=== PATIENT | male | born 1940 | race Caucasian/White ===

== ENCOUNTER 2018-10-28 23:28 | Inpatient (IN) | payer MEDICARE, OTHER ==
[~2018-10-28] VITALS: Ht 172.7 cm; Wt 83.0 kg
[2018-10-28] MEDS ORDERED: INSULIN ASPART (23:45)
[2018-10-28] MEDS ORDERED: JANUVIA50 MG PO (23:45)
[2018-10-28] MEDS ORDERED: GLUCOPHAGE500 MG PO (23:45)
[2018-10-28 23:54] LABS: BASOPHILS 0.3 % (0-2); EOSINOPHILS 1.8 % (0-7); HEMATOCRIT 42.6 % (42.0-54.0); HEMOGLOBIN 15.1 g/dL (13.5-17.5); IMMATURE GRANULOCYTES 0.4 % (0-5); LYMPHOCYTES 27.8 % (15-50); MCH 30.1 pg (26.0-34.0); MCHC 35.4 g/dL (31.0-37.0); MEAN PLATELET VOLUME 10.2 fL (7.4-10.4); MONOCYTES 12.8 % (2-11); NEUTROPHILS 56.9 % (40-80); PLATELET COUNT 185 10x3/uL (130-400); RBC 5.01 10x6/uL (4.20-6.10); RDW 12.7 % (11.5-14.5); WBC 7.9 10x3/uL (4.8-10.8)
[2018-10-29] VITALS (7 sets, daily range): BP systolic 125–160; BP diastolic 66–84; BMI 27.1
[2018-10-29 00:07] LABS: APTT 28.6 SECONDS (22.8-39.4); INR 0.94 (0.85-1.17); PROTIME 12.1 SECONDS (11.6-15.0)
--- NOTE | 2018-10-29 00:10 | NUR ---
stroke [facility] # [id number]
--- NOTE | 2018-10-29 00:16 | NUR ---
SEEN BY [id number], TO CT 0474
--- NOTE | 2018-10-29 00:22 | NUR ---
AR SAVES CALLED AT 0010, AR VIDEO CONF 0016.
[2018-10-29 00:23] LABS: ALBUMIN 3.4 g/dL (3.4-5.0); ALKALINE PHOSPHATASE 75 U/L (46-116); BILIRUBIN - TOTAL 0.47 mg/dL (0.2-1.3); CALC OSMOLALITY 282 mosm/kg (275-300); CALCIUM 8.8 mg/dL (8.5-10.1); CARBON DIOXIDE 27.4 mmol/L (21.0-32.0); CHLORIDE - SERUM 104 mmol/L (98-107); CREATININE - SERUM 1.2 mg/dL (0.6-1.3); GLUCOSE 114 mg/dL (74-106); MAGNESIUM - SERUM 1.6 mg/dL (1.8-2.4); POTASSIUM - SERUM 3.5 mmol/L (3.5-5.1); PROTEIN - SERUM 7.9 g/dL (6.4-8.2); SODIUM 141 mmol/L (136-145); THYROID STIMULATING HORMONE 9.33 uIU/mL (0.36-3.74); TROPONIN-I < 0.017 ng/mL (0.000-0.060); UREA NITROGEN 14 mg/dL (7-18); eGFR NON AFRICAN AMERICAN 63 mL/min (90-120)
[2018-10-29 00:25] LABS: ALT (SGPT) 25 U/L (10-68)
--- NOTE | 2018-10-29 00:29 | NUR ---
VIDEO COF FINISHED.
--- NOTE | 2018-10-29 00:38 | NUR ---
STROKE SCALE IS 1. TPA NOT INDICATED PER NEUROLOGIST TARA. FAMILY IN ROOM AND VERBALIZES UNDERSTANDING. FAMILY STATES IS COMFORTABLE WITH PT BEING ADMITTED HERE.
--- NOTE | 2018-10-29 01:30 | NUR ---
RECIEVED TO FLOOR VIA BED, ACCOMPANIED BY ER STAFF. AMBULATED TO BED, STAND BY ASSIST. PT IS A&O X 4, DENIES PAIN/NUMBNESS/TINGLING. REPORTS HE IS CURRENTLY EXPERIENCING DIFFICULTY WITH DOUBLE VISION. VITAL SIGNS STABLE, TELEMETRY APPLIED - 56 SINUS ERIK. PT DENIES CURRENT NEEDS. WILL CONTINUE TO MONITOR.
--- NOTE | 2018-10-29 07:41 | NUR ---
PT AWAKE, ALERT AND ORIENTED. RR EVEN AND UNLBAORED. DENIES PAIN OR NEEDS AT THIS TIME. ASSISTED PT TO BATHROOM. SLIGHTLY UNSTEADY GAIT. WILL CONTINUE TO MONITOR.
[2018-10-29 09:28] LABS: BASOPHILS 0 % (0-2); EOSINOPHILS 0.4 % (0-7); HEMATOCRIT 41.3 % (42.0-54.0); HEMOGLOBIN 14.4 g/dL (13.5-17.5); IMMATURE GRANULOCYTES 0.4 % (0-5); LYMPHOCYTES 11.2 % (15-50); MCH 29.4 pg (26.0-34.0); MCHC 34.9 g/dL (31.0-37.0); MCV 84.3 fL (80.0-100.0); MONOCYTES 12.2 % (2-11); NEUTROPHILS 75.8 % (40-80); PLATELET COUNT 160 10x3/uL (130-400); RDW 12.7 % (11.5-14.5); WBC 7.6 10x3/uL (4.8-10.8)
--- NOTE | 2018-10-29 09:58 | NUR ---
VOID X1. PT CLEANED AND REPOSITIONED, PADS CHANGED
--- NOTE | 2018-10-29 10:06 | NUR ---
I have reviewed this patient and I concur with the Shift Assessment completed by the Licensed Practical Nurse today this shift.
[2018-10-29 15:07] LABS: CKMB 1.2 U/L (0.0-3.6); CREATINE KINASE 100 UL (21-232)
[2018-10-29 15:09] LABS: TROPONIN-I < 0.017 ng/mL (0.000-0.060)
[2018-10-29 16:55] LABS: CHOL - HDL RATIO 4.9 ratio (2.3-4.9); LDL-HDL RATIO 1.9 ratio (1.5-3.5)
[2018-10-29 18:01] LABS: CKMB 1.2 U/L (0.0-3.6); CREATINE KINASE 107 UL (21-232)
[2018-10-29 18:06] LABS: TROPONIN-I < 0.017 ng/mL (0.000-0.060)
[2018-10-30 00:39] LABS: CKMB 1.1 U/L (0.0-3.6); CREATINE KINASE 106 UL (21-232); TROPONIN-I < 0.017 ng/mL (0.000-0.060)
--- NOTE | 2018-10-30 03:10 | NUR ---
SPONTANEOUS EYE OPENING UPON VERBAL STIMULATION. SPO2 ON ROOM AIR 87%-91%. ENOURAGED DEEP BREATHING, WHICH INCREASED O2, BUT APPLIED 2L O2 VIA NC TO WEAR WHILE PT SLEEPING. PT DENIES NEEDS AT THIS TIME.
[2018-10-30 03:51] VITALS: BP 139/72
--- NOTE | 2018-10-30 04:43 | NUR ---
I have reviewed this patient and I concur with the Shift Assessment completed by the Licensed Practical Nurse today this shift.
[2018-10-30 06:43] LABS: BASOPHILS 0.2 % (0-2); EOSINOPHILS 2.3 % (0-7); HEMATOCRIT 41.9 % (42.0-54.0); HEMOGLOBIN 14.2 g/dL (13.5-17.5); IMMATURE GRANULOCYTES 0.2 % (0-5); LYMPHOCYTES 16.4 % (15-50); MCH 29.2 pg (26.0-34.0); MCHC 33.9 g/dL (31.0-37.0); MCV 86.2 fL (80.0-100.0); MEAN PLATELET VOLUME 11.1 fL (7.4-10.4); NEUTROPHILS 66.9 % (40-80); PLATELET COUNT 157 10x3/uL (130-400); RBC 4.86 10x6/uL (4.20-6.10); RDW 12.8 % (11.5-14.5); WBC 5.7 10x3/uL (4.8-10.8)
[2018-10-30 07:18] LABS: ALBUMIN 2.9 g/dL (3.4-5.0); ALKALINE PHOSPHATASE 68 U/L (46-116); ALT (SGPT) 19 U/L (10-68); BILIRUBIN - TOTAL 0.53 mg/dL (0.2-1.3); CALCIUM 8.5 mg/dL (8.5-10.1); CHLORIDE - SERUM 104 mmol/L (98-107); CHOL - HDL RATIO 5.2 ratio (2.3-4.9); CHOLESTEROL, TOTAL 145 mg/dL (0-200); HDL CHOLESTEROL 28 mg/dL (32-96); LDL CHOLESTEROL 64 mg/dL (0-100); LDL-HDL RATIO 2.3 ratio (1.5-3.5); PROTEIN - SERUM 6.9 g/dL (6.4-8.2); SODIUM 139 mmol/L (136-145); TRIGLYCERIDE 267 mg/dL (30-200); UREA NITROGEN 12 mg/dL (7-18); eGFR NON AFRICAN AMERICAN 77 mL/min (90-120)
[2018-10-30 07:23] LABS: CALC OSMOLALITY 281 mosm/kg (275-300); GLUCOSE 166 mg/dL (74-106); POTASSIUM - SERUM 4.3 mmol/L (3.5-5.1)
[2018-10-30 08:00] VITALS: BP 139/66
[2018-10-30 10:00] LABS: T4 THYROXIN - FREE 0.92 ng/dL (0.76-1.46)
--- NOTE | 2018-10-30 10:10 | NUR ---
PT RESTING IN BED. NO SIGNS OF DISTRESS. IV TO RIGHT AND LEFT FORARM PATENT NO REDNESS OR TENDERNESS. ON TELEMETRY 59 SB. DENIES ANY FURTHER NEED AT THIS TIME. CALL LIGHT IN REACH. BED LOW POSITION. FAMILY AT BEDSIDE.
[2018-10-30 11:00] VITALS: BP 130/63
[2018-10-30 14:00] VITALS: Ht 172.7 cm; Wt 83.0 kg
--- NOTE | 2018-10-30 15:25 | NUR ---
OT NOTE: PT COMPLETED BED MOB TASKS WITH SBA. PT COMPLETED DYNAMIC STANDING BALANCE ACTIVITIES WITH CGA. PT COMPLETED GROOMING TASKS WITH SET UP. PT STATED EYES ARE FOCUSING CORRECTLY TODAY. PT VERY MOTIVATED. THANK YOU, BRETT CRUZ
[2018-10-30 16:00] VITALS: BP 130/63
--- NOTE | 2018-10-30 17:23 | NUR ---
I have reviewed this patient and I concur with the Shift Assessment completed by the Licensed Practical Nurse today this shift.
[2018-10-30 20:18] VITALS: BP 147/74
--- NOTE | 2018-10-30 20:56 | NUR ---
FSBS 245, 4 UNITS HUMALOG GIVEN ORDERED.
[2018-10-31] VITALS: BP 154/70
--- NOTE | 2018-10-31 02:01 | NUR ---
REST IN BED RESP EVEN, NO S/S OF DISTRESS. CALL LIGHT IN REACH.
[2018-10-31 04:00] VITALS: BP 124/69
--- NOTE | 2018-10-31 04:09 | NUR ---
REST QUIETLY IN BED. CALL LIGHT IN REACH.
[2018-10-31 07:11] LABS: BASOPHILS 0.2 % (0-2); EOSINOPHILS 2.5 % (0-7); HEMATOCRIT 42.5 % (42.0-54.0); HEMOGLOBIN 14.7 g/dL (13.5-17.5); IMMATURE GRANULOCYTES 0.4 % (0-5); LYMPHOCYTES 16.1 % (15-50); MCH 29.5 pg (26.0-34.0); MCHC 34.6 g/dL (31.0-37.0); MCV 85.2 fL (80.0-100.0); MEAN PLATELET VOLUME 10.8 fL (7.4-10.4); MONOCYTES 15.2 % (2-11); NEUTROPHILS 65.6 % (40-80); PLATELET COUNT 159 10x3/uL (130-400); RBC 4.99 10x6/uL (4.20-6.10); RDW 12.6 % (11.5-14.5); WBC 5.7 10x3/uL (4.8-10.8)
[2018-10-31 07:26] LABS: ALKALINE PHOSPHATASE 75 U/L (46-116); BILIRUBIN - TOTAL 0.48 mg/dL (0.2-1.3); CALC OSMOLALITY 280 mosm/kg (275-300); CALCIUM 8.5 mg/dL (8.5-10.1); CARBON DIOXIDE 27.8 mmol/L (21.0-32.0); CHLORIDE - SERUM 102 mmol/L (98-107); GLUCOSE 180 mg/dL (74-106); POTASSIUM - SERUM 4.3 mmol/L (3.5-5.1); PROTEIN - SERUM 6.9 g/dL (6.4-8.2); SODIUM 138 mmol/L (136-145); UREA NITROGEN 12 mg/dL (7-18); eGFR NON AFRICAN AMERICAN 77 mL/min (90-120)
[2018-10-31 07:33] LABS: ALT (SGPT) 25 U/L (10-68)
[2018-10-31 10:02] VITALS: BP 117/75
--- NOTE | 2018-10-31 13:47 | NUR ---
DISCHARGED HOME VIA W/C TO PRIVATE CAR WITH FAMILY. DISCHARGE INSTRUCTIONS AND APPOINTMENT REVIEWED WITH PATIENT AND FAMILY.
--- NOTE | 2018-10-31 15:40 | MORECARE ---
CASE MANAGEMENT DISCHARGE SUMMARY PATIENT: CARSON MCCORMICK UNIT: [id number] ADM DATE: 10/29/18 AGE: 78 : 42 SEX: M ROOM/BED: D.1209 AUTHOR: GENNYDOC PHYSICIAN: REFERRING PHYSICIAN: NAYLA GODFREY MD DATE OF SERVICE: 10/31/18 Discharge Plan Patient Name: CARSON MCCORMICK Facility: [facility]:[place] : 1940 Planned Disposition: Home Anticipated Discharge Date: 10/31/18 Discharge Date: Expected LOS: 2 Initial Reviewer: [email or web address] Initial Review Date: 10/31/2018 Generated: 10/31/18 4:39 pm Comments DCP- Discharge Planning Updated by [email or web address]: Rna Ma on 10/31/18 2:[address] Patient Name: CARSON MCCORMICK Admission Status: ER Accout number: [id number] Admission Date: 10-29-2018 : 1940 Admission Diagnosis:DIPLOPIA Attending: NAYLA GODFREY Current LOS: 2 Anticipated DC Date: 10-31-2018 Planned Disposition: Home Primary Insurance: MEDICARE A & B Discharge Planning Comments: CM MET WITH PT AND SPOUSE IN ROOM TO DISCUSS DISCHARGE PLANNING AND NEEDS. CARSON MCCORMICK provided verbal consent to discuss current and ongoing needs with/in the presence of: SPOUSE, JEFF. PT REPORTS LIVING AT HOME INDEPENDENTLY WITH SPOUSE. PT HAS NO MEDICAL EQUIPMENT AND NO OUTSIDE SERVICES ASSISTING IN THE HOME. CM DISCUSSED AVAILABILITY OF HOME HEALTH, REHAB SERVICES AND MEDICAL EQUIPMENT. PT DENIES DISCHARGE NEEDS, REPORTS HIS WILL PICK HIM UP FOR DISCHARGE HOME. [employer] NURSE NOTIFIED. Diamond Setter: Ran Ma DCPIA - Discharge Planning Initial Assessment Updated by [id number]: Ran Ma on 10/31/18 3:35 pm * Is the patient Alert and Oriented? Yes * How many steps to enter\exit or inside your home? NONE * PCP DR. MARTEL VERGAS * Pharmacy [facility] * Preadmission Environment Home with Family * ADLs Independent * Equipment None * Other Equipment NO MEDICAL EQUIPMENT PROVIDER PREFERENCE * List name and contact numbers for known caregivers / representatives who currently or will assist patient after discharge: JEFF MCCORMICK SPOUSE, * Verbal permission to speak to the caregivers and representatives has been obtained from the patient. Yes * Community resources currently utilized None * Please name any agencies selected above. NONE * Additional services required to return to the preadmission environment? No * Can the patient safely return to the preadmission environment? Yes * Has this patient been hospitalized within the prior 30 days at any hospital? No Patient Name: CARSON MCCORMICK Page [id number] at 1540 All edits/amendments must be made on the electronic document DICTATION DATE: 10/31/181538 INFORMATION SYSTEMS SECURITY ANALYST: LAYA 10/31/181538 RPT#: [id number] DC DATE: STATUS: ADM IN [facility] [address] [place] [address] END OF REPORT
--- NOTE | 2018-11-01 14:32 | EC ---
PATIENT:CARSON MCCORMICK DATE OF SERVICE: 10/29/18 SEX: M MEDICAL RECORD: [id number] DATE OF : 44 [facility] AGE OF PATIENT: 78 ADMISSION DATE: 10/29/18 REFERRING PHYSICIAN: INTERPRETING PHYSICIAN: MALCOLM BRITO MD ECHOCARDIOGRAM REPORT ECHO CHARGES 4 ECHO COMPLETE Date: 10/30/18 CLINICAL DIAGNOSIS: TIA VS CVA ECHOCARDIOGRAPHIC MEASUREMENTS (adult normal given) AC root (d.<3.7cm) 3.1 cm LV Septum d (<1.2 cm> 1.3 cm Valve Excursion 2.0 cm LV Septum (systole) 1.6 cm Left Atria (s.<4.0cm> 3.7 cm LVPW d(<1.2cm) 1.2 cm RV (d.<2.3cm) 3.5 cm LVPW (sytole) 1.7 cm LV diastole(<5.6CM) 4.8 cm MV E-F(>70mm/sec) cm LV systole 3.3 cm LVOT Diameter 2.0 cm MV exc.(>10mm) cm Est.ejection fraction (50-75%) % DOPPLER: LVIT cm/sec A 64 cm/sec E 59 cm/sec LA cm/sec RVSP 25.5 mmHg LVOT 104 cm/sec AOP1/2T m/s Asc. Ao 117 cm/sec RVOT 40 cm/sec RA cm/sec PA 61 cm/sec AV Gradient Peak 5.5 mmHg AV Mean 3.0 mmHg AV Area 3.1 cm MV Gradient Peak 2.1 mmHg MV Mean 0.8 mmHg MV Area cm COMMENTS: Office Equipment Mechanic: Jenni MONTESINOS Telegraph Messenger: 1 Dr. Brito TAPE# PACS Pericardial Effusion N DATE OF SERVICE: 10/30/2018 1. Left ventricular chamber size is within normal limits. Left ventricular systolic function is normal. Overall ejection fraction estimated at 60%. 2. Left atrium, right atrium, and right ventricular chamber sizes are within normal limits. 3. Valvular structures have normal structure and motion. 4. Doppler interrogation only reveals mild tricuspid regurgitation, no other valvular insufficiency or stenosis. Pulmonary systolic pressure is estimated at 25 mmHg. ECHOCARDIOGRAM REPORT [id number] CARSON MCCORMICK 5. No evidence of pericardial effusion or left ventricular thrombus. TRANSINT:[id number] Voice Confirmation ID: [id number] DOCUMENT ID: [id number] MALCOLM BRITO MD at 1432 CC: [id number] DICTATION DATE: 10/30/18 1601 SHAPING MACHINE TENDER: 10/30/18 193 DIS IN 10/31/18 [facility] [address] [id number]
== END 2018-10-31 13:57 | disposition home or self-care (01) | DRG 69 ==
LOC: D.ER 23:28 → OBSVTIME 10-29 00:44 → D.M3 10-29 00:44
PROVIDERS: Family Medicine; ADMIT Internal Medicine Nephrology; ATTEND Internal Medicine Nephrology
DX: G45.9 Transient cerebral ischemic attack, unspecified (principal); H53.2 Diplopia; E11.9 Type 2 diabetes mellitus without complications; E83.42 Hypomagnesemia; E03.9 Hypothyroidism, unspecified; I10 Essential (primary) hypertension; R20.2 Paresthesia of skin; R91.1 Solitary pulmonary nodule

== ENCOUNTER 2018-12-28 05:40 | Day surgery (SDC) | payer MEDICARE, OTHER ==
[2018-12-25 14:14] LABS: CALC OSMOLALITY 279 mosm/kg (275-300); CALCIUM 8.8 mg/dL (8.5-10.1); CARBON DIOXIDE 27.3 mmol/L (21.0-32.0); CHLORIDE - SERUM 106 mmol/L (98-107); SODIUM 141 mmol/L (136-145); UREA NITROGEN 14 mg/dL (7-18); eGFR NON AFRICAN AMERICAN 77 mL/min (90-120)
[2018-12-25 14:17] LABS: GLUCOSE 57 mg/dL (74-106)
[2018-12-25 14:52] LABS: BASOPHILS 0.2 % (0-2); EOSINOPHILS 2.6 % (0-7); HEMATOCRIT 43.5 % (42.0-54.0); HEMOGLOBIN 14.7 g/dL (13.5-17.5); IMMATURE GRANULOCYTES 0.2 % (0-5); LYMPHOCYTES 24.2 % (15-50); MCH 29.9 pg (26.0-34.0); MCHC 33.8 g/dL (31.0-37.0); MCV 88.6 fL (80.0-100.0); MEAN PLATELET VOLUME 10.5 fL (7.4-10.4); MONOCYTES 15.4 % (2-11); NEUTROPHILS 57.4 % (40-80); RBC 4.91 10x6/uL (4.20-6.10); RDW 12.6 % (11.5-14.5); WBC 6.2 10x3/uL (4.8-10.8)
[2018-12-25 15:24] LABS: PLATELET COUNT 241 10x3/uL (130-400)
[~2018-12-28] VITALS: Ht 172.7 cm; Wt 81.6 kg
[~2018-12-28 05:40] MED LIST: BASAGLAR K100 UNIT/1 SC; GLUCOPHAGE500 MG PO; INSULIN ASPART; JANUVIA50 MG PO; SYNTHROID50 MCG PO
[2018-12-28 06:31] VITALS: BP 138/73; Ht 172.7 cm; Wt 81.6 kg
== END 2018-12-28 09:04 | disposition home or self-care (01) ==
LOC: D.OPS 05:40 → D.PAN 07:30 → D.OPS 07:30
PROVIDERS: ATTEND Orthopaedic Surgery
DX: M79.5 Residual foreign body in soft tissue (principal); M25.861 Other specified joint disorders, right knee